=== PATIENT | female | born 1965 | race Two or more races ===

== ENCOUNTER 2018-05-04 18:11 | Emergency (ER) | payer OTHER ==
[~2018-05-04] VITALS: Ht 160 cm; Wt 61.2 kg
[2018-05-04 18:18] VITALS: BP 117/70
--- NOTE | 2018-05-04 19:00 | Emergency Room Report ---
History of Present Illness General Chief Complaint: General Complaint Source: Patient (Noah Milan) Present Illness HPI 53-year-old female patient presents to ER complaining of left foot and right knee pain. Reports that the pain is present for the past 2 weeks, denies injury prior to start of pain, states that recently was hit by a door on her foot which made pain worse. Also complaining of right knee pain for the past 4 days , denies acute injury or trauma. denies redness or swelling. Denies history of gout. Denies fever, chest pain, shortness of breath. Reports recently diagnosed rheumatoid arthritis, taking ibuprofen for relief of symptoms. States that she is awaiting referral to credit reporting clerk. Patient is requesting x -rays be taken. Reports pain with ambulation. reports history of left ankle fracture in 2015, states healed without complications. reports that she has been running and exercising recently. 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 (Noah Milan) Allergies: Coded Allergies: No Known Allergies (Unverified , 05/04/18) Patient History Past Medical History: see triage record Reviewed Nursing Documentation: PMH: Agreed; PSxH: Agreed (Noah Milan) Nursing Documentation-PMH Past Medical History: No History, Except For (Noah Milan) Review of Systems All Other Systems: negative except mentioned in HPI (Noah Milan) Physical Exam Vital Signs Date Time Temp Pulse Resp B/P (MAP) Pulse Ox O2 Delivery O2 Flow Rate FiO2 05/04/18 18:18 14 117/70 97 Room Air 05/04/18 18:18 98.0 89 98.1 Sp02 EP Interpretation: reviewed, normal General Appearance: well appearing, no apparent distress, alert, GCS 15, non- toxic Head: normocephalic, atraumatic Eyes: bilateral eye normal inspection, bilateral eye PERRL ENT: hearing grossly normal, normal pharynx, no angioedema, normal voice, uvula midline, moist mucus membranes Neck: full range of motion Respiratory: lungs clear, normal breath sounds, no rhonchi, no respiratory distress, no accessory muscle use, no wheezing, speaking full sentences Cardiovascular #1: regular rate, rhythm, no edema Cardiovascular #2: 2+ dorsalis pedis (R), 2+ dorsalis pedis (L) Musculoskeletal: back normal, digits/nails normal, gait/station normal, normal range of motion, no calf tenderness, Frantz's Sign negative, swelling - distal fifth metatarsal, other - negative anterior and posterior drawer test, no laxity with varus or valgus stress of the right knee, NVI, no erythema or edema , no gouty tophi, sensation intact to light touch, cap refill less than 2 seconds, tender - medial anterior right knee; dorsum of left forefoot and distal fifth metatarsal Neurologic: alert, oriented x3, responsive, motor strength/tone normal, sensory intact Psychiatric: mood/affect normal Skin: no rash (Noah Milan) Medical Decision Making PA Attestation Dr. Vega is my supervising Physician whom patient management has been discussed with. (Noah Milan) Diagnostic Impression: Primary Impression: Arthritis pain Additional Impression: Foot contusion ER Course Pt. presents to the ED c/o right knee and left foot pain. Ddx considered but are not limited to fracture, sprain, strain, contusion, dislocation. No erythema, no warmth to touch, no fever, nontoxic appearing, low suspicion for septic joint. Vital signs: are WNL, pt. is afebrile Ordered X-rays. ER COURSE patient declined pain medication. An X-ray of the left foot shows no acute fracture, old healing fracture of left fifth metatarsal per the preliminary reading. An X-ray of the Right knee shows no acute fracture per the preliminary reading. Small calcified loose body noted, could be causing pain symptoms. Informed patient pain may also be due to arthritis. continue to take medications as previously instructed and follow up with credit reporting clerk. Rufino wrap was applied to the left foot and right knee and was checked afterwards by me showing good alignment and support with distal neurovascular functioning intact. patient declined crutches. Patient instructed on RICE method: rest, ice, compression, elevation. Patient instructed on rest, ice and heat. Patient instructed to be WBAT Work note provided. Contact information for orthopedic urgent care provided, follow-up with urgent care if unable to followup with primary care provider and get referral to business operations specialist. Followup with primary care provider. Discuss referral to ortho/pain management/ PT as needed. Discuss further imaging with MRI/CT as needed. provided patient with contact information for orthopedist and composition siding worker. DISCHARGE: -Rx provided for Ibuprofen for pain symptoms. At this time pt. is stable for d/c to home. Patient is resting comfortably, in no acute distress, nontoxic appearing, talking without difficulty. Will provide printed patient care instructions, and any necessary prescriptions. Patient instructed to follow with primary care provider in 3 - 5 days and to request further follow-up as needed. Care plan and follow up instructions have been discussed with the patient prior to discharge. Take medications as directed. Patient questions asked and answered. Patient reports understanding and agreement to treatment plan. ER precautions given, patient instructed to return to ER immediately for any new or worsening of symptoms. - Please note that this Emergency Department Report was dictated using [employer] systems analyst technology software, occasionally this can lead to erroneous entry secondary to interpretation by the dictation equipment. (Noah Milan P.A.) Other X-Ray Diagnostic Results Other X-Ray Diagnostic Results #1: X-Ray ordered: left foot # of Views/Limited Vs Complete: 3 View Indication: Pain EP Interpretation: Yes PA Xray: Interpretation reviewed, by supervising MD, and agrees with findings. Interpretation: no dislocation, no soft tissue swelling, no fractures, other - old healing fracture at distal fifth metatarsal Impression: No acute disease PA Scribe Text Pedro Milan PA-C Other X-Ray Diagnostic Results #2: X-Ray ordered: right knee # of Views/Limited Vs Complete: 3 View Indication: Pain EP Interpretation: Yes PA Xray: Interpretation reviewed, by supervising MD, and agrees with findings. Interpretation: no dislocation, no soft tissue swelling, no fractures, other - small calcified loose body Impression: No acute disease PA Scribe Text Pedro Milan PA-C (Noah Milan P.A.) Other X-Ray Diagnostic Results #1: Electronically Signed by: Scribe documentation reviewed by me and is accurate, Vignesh Vega MD. Other X-Ray Diagnostic Results #2: Electronically Signed by: Scribe documentation reviewed by me and is accurate, Vignesh Vega MD. (Vignesh Vega M.D.) Last Vital Signs Date Time Temp Pulse Resp B/P (MAP) Pulse Ox O2 Delivery O2 Flow Rate FiO2 05/04/18 18:18 98.0 89 14 117/70 97 Room Air 98.1 (Noah Milan) Disposition: HOME, SELF-CARE Condition: Stable Scripts Ibuprofen* (MOTRIN*) 800 Mg Tablet 800 MG ORAL Q8H, #30 TAB 0 Refills Prov: Noah Milan 05/04/18 Patient Instructions: Foot Contusion, Knee Pain, [id number], Rheumatoid Arthritis, [id number] Additional Instructions: Follow-up with credit reporting clerk. Patient instructed to follow up with primary care provider and discuss further referral to orthopedics/physical therapy/pain management as needed. Discuss need for MRI imaging of right knee. If unable to followup with PCP, followup with orthopedic urgent care in 5-7 days , call to schedule appointment. Patient instructed on RICE method: rest, ice, compression, elevation. Patient instructed to WBAT. Take medications as directed. Patient questions asked and answered. ER precautions given, patient instructed to return to ER immediately for any new or worsening of symptoms. [facility] [address] [facility] [address] [facility], [address] [email or web address] Noah Milan May 04, 2018 19:00 Vignesh Vega M.D. May 07, 2018 17:24
[2018-05-04] MEDS ORDERED: IBUPROFEN800 MG ORAL (19:28)
[2018-05-04 19:40] VITALS: BP 117/70
--- NOTE | 2018-05-05 17:54 | Diagnostic Imaging Report ---
Indication: Pain Technique: XRAY Knee 3v R Comparison: None Findings: Bone mineralization within normal limits. There is no evidence of acute fracture or dislocation. There is suggestion of a approximately 7 mm intra-articular loose body. Some small patellar osteophytes are noted. No suprapatellar joint effusion. No radiopaque foreign body. IMPRESSION: * No evidence of acute fracture or dislocation. * Mild degenerative change in suggestion of a intra-articular loose body. Correlation with MRI of the knee recommended. This may be obtained on a nonemergent basis. This corresponds with the preliminary interpretation of the treating ER physician, as documented in the electronic medical record.
--- NOTE | 2018-05-05 17:57 | Diagnostic Imaging Report ---
Indication: Pain Technique: XRAY Foot Complete L Comparison: None Findings: Is a bony erosion involving the head of the fifth metatarsal there is some overlying soft tissue swelling. There is suggestion of some underlying focal osteopenia in this region. Additional possible small erosion involving the medial base of the first proximal phalanx. No evidence of acute fracture. Joint spaces appear preserved. There are small plantar and dorsal calcaneal enthesophytes. IMPRESSION: No evidence of acute fracture or dislocation. Bony erosions involving the head of the fifth metatarsal and base of the first proximal phalanx. These are suggestive of an inflammatory arthropathy. Correlate clinically.
== END 2018-05-04 19:40 | disposition home or self-care (01) ==
LOC: EMR 18:55
DX: M06.9 Rheumatoid arthritis, unspecified (principal); W22.8XXA Striking against or struck by other objects, initial encounter; Y92.89 Other specified places as the place of occurrence of the external cause; S90.32XA Contusion of left foot, initial encounter; M25.561 Pain in right knee; Z87.891 Personal history of nicotine dependence
CPT/HCPCS: 99284

== ENCOUNTER 2018-08-27 18:53 | Emergency (ER) | payer OTHER ==
[~2018-08-27] VITALS: Ht 91.4 cm; Wt 59.0 kg
[~2018-08-27 18:53] MED LIST: IBUPROFEN800 MG ORAL
[2018-08-27] MEDS ORDERED: Morphine Sulfate 2mg/ml Inj IVP ONE (19:30)
--- NOTE | 2018-08-27 19:40 | NUR ---
ED Nurse Note: RECIEVED REPORT TO RESUME CARE, PT IN BED AWAKE, ALERT AND ORIENTED X 4, PT HERE WITH C/O MID EPIGASTRIC PAIN AND INTERMITTENT SOB, PT DENEIS CP, PT HAS NO SOB NOTED AT REST, PT IS GOWNED AND ON CARDIAC MONITORING, DENIES FEVERS, DIARRHEA, NAUSEA OR VOMITING, PT IS CALM AND COOPERATIVE, WILLR ESUME CARE ORDERED, START IV LINE, DRAW LABS AND MEDICATE ORDERED WITH CLOSE MONITORING.
[2018-08-27 21:00] VITALS: BP 124/62
[2018-08-27 21:07] LABS: BASOPHILS % (AUTO) 0.9 % (0.0-2.0); EOSINOPHILS % (AUTO) 1.7 % (0.0-3.0); HEMATOCRIT 38.3 % (37.0-47.0); HEMOGLOBIN 12.8 G/DL (12.0-16.0); LYMPHOCYTES % (AUTO) 34.4 % (20.0-45.0); MEAN CORPUSCULAR VOLUME 94 FL (80-99); MONOCYTES % (AUTO) 6.3 % (1.0-10.0); NEUTROPHILS % (AUTO) 56.7 % (45.0-75.0); PLATELET COUNT 219 K/UL (150-450); RED BLOOD COUNT 4.07 M/UL (4.20-5.40); RED CELL DISTRIBUTION WIDTH 12.8 % (11.6-14.8); WHITE BLOOD COUNT 8.8 K/UL (4.8-10.8)
[2018-08-27 21:18] LABS: ANION GAP 9 mmol/L (5-15); BLOOD UREA NITROGEN 16 mg/dL (7-18); CALCIUM 8.9 MG/DL (8.5-10.1); CARBON DIOXIDE 25 MMOL/L (21-32); CHLORIDE 106 MMOL/L (98-107); CREATININE 0.7 MG/DL (0.55-1.30); POTASSIUM 3.6 MMOL/L (3.5-5.1); SODIUM 140 MMOL/L (136-145)
[2018-08-27 21:28] LABS: ALANINE AMINOTRANSFERASE 39 U/L (12-78); ALBUMIN 3.3 G/DL (3.4-5.0); ALKALINE PHOSPHATASE 92 U/L (46-116); ASPARTATE AMINO TRANSFERASE 21 U/L (15-37); CREATINE KINASE 53 U/L (26-308)
[2018-08-27] MEDS ORDERED: LORazepam Inj 2mg/ml 1ml IV ONE (22:00)
--- NOTE | 2018-08-27 22:00 | NUR ---
ED Nurse Note: PT CONTINUES TO REST QUIETLY IN BED, AWAKE AND ALERT, PT MEDICATED ORDERED, STATES MEDS EFFECTIVE FOR PAIN BUT CONTINUES TO C/O HAVING SOB AND ASKING FOR BREATHING TREATMENT, PT APPEARS TO HAVE INCREASED ANXIETY AFTER TAKING MORPHINE AND APPEARS SCARED, PT LATIA RAPHAEL MD INFORMED, WILL CONTINUE TO CLOSELY MONITOR, PT IS AMBULATORY WITH STEADY GAIT, NO CHANGES OR INCREASED DISTRESS NOTED.
[2018-08-27 23:00] VITALS: BP 119/58
--- NOTE | 2018-08-27 23:51 | Emergency Room Report ---
History of Present Illness General Chief Complaint: Dyspnea/Respdistress Source: Patient Present Illness HPI Patient with 2 days of epigastric and some lower chest pain. Today she got extremely short of breath and felt she could not catch her breath. She felt she was choking. There is been no cough. She denies fevers or chills. There is no productive phlegm. This came on while she was at work at rest. She was not exerting herself. The pain is rated 8/10. She does not hear herself wheezing. She has never used an inhaler and has no history of asthma or allergies. She has not taken any medication to treat the pain or the shortness of breath. The pain is caused her to feel quite anxious. She denies any tingling in her hands or around her mouth. Treated for gastritis with omeprazole. She had recent endoscopy. She claims they told her she had H. pylori however this was not treated. No risk factors for blood clots, leg edema or calf pain. Risk factors for cardiac disease: No diabetes, hypertension, smoking, family history or knowledge of high cholesterol. Allergies: Coded Allergies: No Known Allergies (Unverified , 05/04/18) Patient History Past Medical History: see triage record Social History: Denies: smoking, alcohol use Social History Narrative Working Reviewed Nursing Documentation: PMH: Agreed; PSxH: Agreed Physical Exam Vital Signs Date Time Temp Pulse Resp B/P (MAP) Pulse Ox O2 Delivery O2 Flow Rate FiO2 08/27/18 19:07 98.2 80 18 127/5 98 Room Air Sp02 EP Interpretation: reviewed, normal General Appearance: well appearing, alert, GCS 15, mild distress Head: normocephalic, atraumatic Eyes: bilateral eye normal inspection, bilateral eye PERRL ENT: moist mucus membranes Neck: supple Respiratory: lungs clear, normal breath sounds Cardiovascular #1: regular rate, rhythm Cardiovascular #2: 2+ radial (R) Gastrointestinal: normal inspection, normal bowel sounds, no mass, non- distended, no guarding, no rebound, tenderness - Minimal epigastric Musculoskeletal: back normal, gait/station normal, normal range of motion Neurologic: alert, oriented x3, grossly normal Psychiatric: anxious Skin: normal inspection, warm/dry Medical Decision Making Diagnostic Impression: Primary Impression: Dyspnea Qualified Codes: R06.00 - Dyspnea, unspecified Additional Impressions: Chest pain Qualified Codes: R07.9 - Chest pain, unspecified Gastritis Qualified Codes: K29.50 - Unspecified chronic gastritis without bleeding ER Course Patient presents with epigastric/chest pain with dyspnea and anxiety. Differential includes acute myocardial infarction, acute coronary syndrome, esophageal spasm, reflux esophagitis, gastritis, hyperventilation amongst others. Based on exam and vital signs pulmonary embolus is not likely. Evaluation will be with EKG, chest x-ray and labs. Patient will be treated with IV hydration, Pepcid, morphine and Zofran. EKG without injury. Chest x-ray normal. Labs unremarkable (glucose 180). Patient improved with treatment. No more dyspnea. She had refused Ativan. Shortness of breath and pain is resolved completely. EKG, x-ray and lab results were reviewed with the patient. Close outpatient observation follow-up with her doctors tomorrow is recommended. No medical emergency at this time. Patient stable for outpatient observation and treatment. Laboratory Tests Test 08/27/18 20:20 White Blood Count 8.8 K/UL (4.8-10.8) Red Blood Count 4.07 M/UL (4.20-5.40) L Hemoglobin 12.8 G/DL (12.0-16.0) Hematocrit 38.3 % (37.0-47.0) Mean Corpuscular Volume 94 FL (80-99) Mean Corpuscular Hemoglobin 31.4 PG (27.0-31.0) H Mean Corpuscular Hemoglobin Concent 33.3 G/DL (32.0-36.0) Red Cell Distribution Width 12.8 % (11.6-14.8) Platelet Count 219 K/UL (150-450) Mean Platelet Volume 5.8 FL (6.5-10.1) L Neutrophils (%) (Auto) 56.7 % (45.0-75.0) Lymphocytes (%) (Auto) 34.4 % (20.0-45.0) Monocytes (%) (Auto) 6.3 % (1.0-10.0) Eosinophils (%) (Auto) 1.7 % (0.0-3.0) Basophils (%) (Auto) 0.9 % (0.0-2.0) Prothrombin Time 10.2 SEC (9.30-11.50) Prothrombin Time INR 1.0 (0.9-1.1) PTT 25 SEC (23-33) Urine Color Pending Urine Appearance Pending Urine pH Pending Urine Specific [place] Pending Urine Protein Pending Urine Glucose (UA) Pending Urine Ketones Pending Urine Blood Pending Urine Nitrite Pending Urine Bilirubin Pending Urine Urobilinogen Pending Urine Leukocyte Esterase Pending Sodium Level 140 MMOL/L (136-145) Potassium Level 3.6 MMOL/L (3.5-5.1) Chloride Level 106 MMOL/L (98-107) Carbon Dioxide Level 25 MMOL/L (21-32) Anion Gap 9 mmol/L (5-15) Blood Urea Nitrogen 16 mg/dL (7-18) Creatinine 0.7 MG/DL (0.55-1.30) Estimate Glomerular Filtration Rate > 60 mL/min (>60) Glucose Level 180 MG/DL (74-106) H Calcium Level 8.9 MG/DL (8.5-10.1) Total Bilirubin 1.0 MG/DL (0.2-1.0) Aspartate Amino Transferase (AST) 21 U/L (15-37) Alanine Aminotransferase (ALT) 39 U/L (12-78) Alkaline Phosphatase 92 U/L (46-116) Total Creatine Kinase 53 U/L (26-308) Troponin I 0.005 ng/mL (0.000-0.056) Pro-B-Type Natriuretic Peptide 38 pg/mL (0-125) Total Protein 6.5 G/DL (6.4-8.2) Albumin 3.3 G/DL (3.4-5.0) L Globulin 3.2 g/dL Albumin/Globulin Ratio 1.0 (1.0-2.7) EKG Diagnostic Results Rate: normal Rhythm: NSR ST Segments: no acute changes Rhythm Strip Diag. Results EP Interpretation: yes Rhythm: NSR, no PVC's, no ectopy Chest X-Ray Diagnostic Results Chest X-Ray Diagnostic Results : Chest X-Ray Ordered: Yes # of Views/Limited/Complete: 1 View Indication: Other EP Interpretation: Yes Interpretation: no consolidation, no effusion, no pneumothorax Impression: No acute disease Electronically Signed by: Electronically signed by Vignesh Vega MD Last Vital Signs Date Time Temp Pulse Resp B/P (MAP) Pulse Ox O2 Delivery O2 Flow Rate FiO2 08/28/18 00:27 98.7 74 16 119/58 99 Room Air Status: improved Disposition: HOME, SELF-CARE Condition: Improved Scripts Acetaminophen (Tylenol) 325 Mg Tablet 650 MG ORAL Q6H PRN for Prn Pain/Headache/Temp > 101, #20 TAB 0 Refills Prov: Vignesh Vega MD 08/28/18 Tramadol Hcl* (ULTRAM*) 50 Mg Tablet 50 MG ORAL Q6H PRN for For Pain, #8 TAB 0 Refills Prov: Vignesh Vega MD 08/28/18 Referrals: NON PHYSICIAN (PCP) Vignesh Vega MD Aug 27, 2018 23:51
--- NOTE | 2018-08-27 23:55 | NUR ---
ED Nurse Note: PT BEING D/C TO HOME, PT IS AWAKE, ALERT AND ORIENTED X 4, NO PAIN AT ALL, STATES IS RESOLVED, PT DENEIS CP OR ANY PAIN, STATES IS RESOLVED, IV LINE AND ARMBAND REMOVED, PT WITH FAMILY MEMBERS TO DRIVE HER, GIVEN F/U INFO, AFTER CARE INSTRUCITONS AND RE-VERBALIZES PROPER MEDICATION ADMINISTRATION, NAD NOTED DURING D/C TO HOME.
[2018-08-28] MEDS ORDERED: TYLENOL325 MG ORAL (00:11)
[2018-08-28] MEDS ORDERED: TRAMADOL HCL50 MG ORAL (00:11)
[2018-08-28 00:15] VITALS: BP 114/69
[2018-08-28 00:27] VITALS: BP 119/58
--- NOTE | 2018-08-28 11:59 | Diagnostic Imaging Report ---
Indication: Dyspnea Comparison: None A single view chest radiograph was obtained. Findings: Cardiomediastinal appearance is within normal limits for age. The lungs are clear. Pulmonary vascularity is appropriate. The diaphragmatic contour is smooth and costophrenic angles are sharp. No pleural effusions are identified. The bones are unremarkable. Impression: No acute findings
== END 2018-08-28 00:25 | disposition home or self-care (01) ==
LOC: EMR 19:23
DX: R06.00 Dyspnea, unspecified (principal); R07.9 Chest pain, unspecified; K29.70 Gastritis, unspecified, without bleeding
CPT/HCPCS: 36415; 71045; 80053; 82550; 83880; 84484; 85025; 85610; 85730; 93005; 96361; 96374; 96375; 99284; J2270; J2405; S0028

== ENCOUNTER 2018-10-01 16:37 | Emergency (ER) | payer OTHER ==
[~2018-10-01] VITALS: Ht 160 cm; Wt 59.0 kg
[~2018-10-01 16:37] MED LIST changes: +TRAMADOL HCL50 MG ORAL; +TYLENOL325 MG ORAL
[2018-10-01] MEDS ORDERED: NKM (16:44)
--- NOTE | 2018-10-01 17:03 | NUR ---
ED Nurse Note: Pt came into the Er w/ complaints of headache x 3 days. Pt is A + O x4. Ambulatory. Skin warm to touch. Pt is complaining of 9/10. Non radiating.
[2018-10-01 17:04] VITALS: BP 120/85
[2018-10-01] MEDS ORDERED: Ketorolac 30mg Inj IM ONE (17:15)
[2018-10-01] MEDS ORDERED: Metoclopramide 10mg/2ml Inj IM ONE (17:15)
[2018-10-01 17:53] LABS: APPEARANCE,URINE CLEAR; BILIRUBIN, URINE NEGATIVE (NEGATIVE); COLOR,URINE PALE YELLOW; GLUCOSE, URINE (UA) NEGATIVE (NEGATIVE); KETONES,URINE NEGATIVE (NEGATIVE); LEUKOCYTE ESTERASE ,URINE 1+ (NEGATIVE); NITRITE,URINE NEGATIVE (NEGATIVE); PH,URINE 6 (4.5-8.0); PROTEIN,URINE NEGATIVE (NEGATIVE); UROBILINOGEN,URINE NORMAL MG/DL (0.0-1.0)
--- NOTE | 2018-10-01 18:23 | Emergency Room Report ---
History of Present Illness General Chief Complaint: Headache Source: Medical Record Present Illness Allergies: Coded Allergies: No Known Allergies (Unverified , 05/04/18) Patient History Last Menstrual Period: 2 yrs ago Nursing Documentation-[facility] Past Medical History: No History, Except For Hx Cardiac Problems: No - arthritis Physical Exam Vital Signs Date Time Temp Pulse Resp B/P (MAP) Pulse Ox O2 Delivery O2 Flow Rate FiO2 10/01/18 16:41 98.4 81 18 127/89 96 Room Air Medical Decision Making PA Attestation Dr. Arriaza is my supervising Physician whom patient management has been discussed with. Diagnostic Impression: Primary Impression: Headache Qualified Codes: G44.209 - Tension-type headache, unspecified, not intractable ER Course Pulls posteriorly Labs Test 10/01/18 17:23 Urine Color Pale yellow Urine Appearance Clear Urine pH 6 (4.5-8.0) Urine Specific [place] 1.020 (1.005-1.035) Urine Protein Negative (NEGATIVE) Urine Glucose (UA) Negative (NEGATIVE) Urine Ketones Negative (NEGATIVE) Urine Blood 2+ (NEGATIVE) Urine Nitrite Negative (NEGATIVE) Urine Bilirubin Negative (NEGATIVE) Urine Urobilinogen Normal MG/DL (0.0-1.0) Urine Leukocyte Esterase 1+ (NEGATIVE) Urine RBC 2-4 /HPF (0 - 2) Urine WBC 2-4 /HPF (0 - 2) Urine Squamous Epithelial Cells Few /LPF (NONE/OCC) Urine Bacteria Few /HPF (NONE) Last Vital Signs Date Time Temp Pulse Resp B/P (MAP) Pulse Ox O2 Delivery O2 Flow Rate FiO2 10/01/18 17:04 98.4 77 20 120/85 98 Room Air Disposition: HOME, SELF-CARE Condition: Stable Departure Forms: Return to Work Return to Work Date: Oct 03, 2018 Work Restrictions: None Return to Full Activity: Oct 03, 2018 Patient Instructions: Tension Headache Additional Instructions: Take medications as directed. Follow up with a Primary Care Provider in 3-5 days, even if your symptoms have resolved. --Please review list of primary care clinics, if you do not already have a primary care provider Return sooner to ED if new symptoms occur, or current symptoms become worse. Do not drink alcohol, drive, or operate heavy machinery while taking Robaxin ( Muscle Relaxers) as this may cause drowsiness. - Please note that this Emergency Department Report was dictated using [employer] development associate technology software, occasionally this can lead to erroneous entry secondary to interpretation by the dictation equipment. Carissa Boyce Oct 01, 2018 18:23
[2018-10-01] MEDS ORDERED: EXCEDRIN MIGRA1 EACH PO (18:24)
[2018-10-01] MEDS ORDERED: ROBAXIN-750750 MG PO (18:24)
[2018-10-01 18:33] VITALS: BP 115/80
--- NOTE | 2018-10-01 18:34 | NUR ---
ER DISCHARGE NOTE: Patient is cleared to be discharged per ERMD, pt is aox4, on room air, with stable vital signs. pt was given dc and prescription instructions, pt was able to verbalize understanding, pt id band removed without complications. pt is able to ambulate with steady gait. pt took all belongings.
== END 2018-10-01 18:35 | disposition home or self-care (01) ==
LOC: EMR 17:18
DX: G44.209 Tension-type headache, unspecified, not intractable (principal)
CPT/HCPCS: 81003; 96372; 99283; J1885; J2765